=== PATIENT | female | born 1950 ===

== ENCOUNTER 2023-07-16 08:51 | Emergency (ER) | payer BC, MEDICARE ==
[~2023-07-16] VITALS: Ht 160 cm; Wt 77.1 kg
[2023-07-16 09:39] VITALS: BP 134/67; PULSE 80; RESP 18; TEMP 96.8; O2SAT 98
[2023-07-16] MEDS ORDERED: NYSPWD TP (10:40)
== END 2023-07-16 11:35 | disposition home or self-care (01) ==
LOC: ER 08:52
DX: B37.2 Candidiasis of skin and nail (principal)
CPT/HCPCS: 99283

== ENCOUNTER 2025-01-19 11:05 | Inpatient (IN) | payer MEDICARE, OTHER ==
[~2025-01-19] VITALS: Ht 162.6 cm; Wt 73.0 kg
[~2025-01-19 11:05] MED LIST: NYSPWD TP
[2025-01-19 11:49] LABS: MEAN PLATELET VOLUME 9.8 FL (7.4-10.4); RED CELL DISTRIBUTION WIDTH 14.2 % (11.5-14.5)
[2025-01-19 12:08] LABS: CREATININE 1.43 MG/DL (0.40-0.90); PRO BRAIN NATRIURETIC PEPTIDE 125 PG/ML (0-125); TOTAL CARBON DIOXIDE 26.8 MMOL/L (24-32); eCRCL 30 ML/MIN; eGFR 36 ML/MIN
--- NOTE | 2025-01-19 12:16 | ELECTROCARDIOGRAPH REPORT ---
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 Rivka Smith Measurements Intervals [place] Rate: 76 P: 0 [place]: 0 QRS: -90 QRSD: 114 T: 92 QT: 402 QTc: 453 Interpretive Statements Atrial fibrillation Left anterior fascicular block Abnormal R-wave progression, late transition Borderline T abnormalities, anterior leads Electronically Signed On 01-19-2025 12:42:[address] Rivka Smith Please click the below link to view image of tracing.
--- NOTE | 2025-01-19 12:35 | RADIOLOGY REPORT ---
DI CHEST,SINGLE VIEW, HISTORY: CP COMPARISON: None None TECHNICAL DATA: 1 view of the chest was obtained. FINDINGS: Lines and tubes: None Cardiomediastinal silhouette: normal Pulmonary vasculature: normal Lung expansion: normal Lung airspace: normal Lung interstitium: normal Pleura: normal Pneumothorax: no Bones: Unremarkable Other: no IMPRESSION: No acute intrathoracic abnormality.
[2025-01-19 13:25] LABS: LEUKOCYTE ESTERASE ,URINE NEGATIVE (Neg); NITRITES, URINE NEGATIVE (Neg); OCCULT BLOOD,URINE SMALL (Neg)
[2025-01-19 13:33] LABS: UA COLLECTION TYPE STRAIGHT CATH
[2025-01-19 13:34] LABS: MUCUS STRANDS FEW /LPF (Neg); SQUAMOUS EPITHELIAL CELL,UR MANY /LPF (FEW)
[2025-01-19 13:36] LABS: AMORPHOUS PHOSPHATES 2+
[2025-01-19 13:38] LABS: HYALINE CASTS 0-3 /LPF (NEGATIVE)
[2025-01-19] MEDS: normal saline 1000ML IV soln IVB ONE (17:50)
--- NOTE | 2025-01-19 17:50 | RADIOLOGY REPORT ---
CT CT HEAD Indication: aloc EXAM DATE: 01/19/2025 05:31 PM COMPARISON: None TECHNIQUE: CT of the head without intravenous contrast. RADIATION DOSE: CTDIvol: 65 mGy, DLP: 1255 mGy*cm FINDINGS: There is no intracranial hemorrhage. There is no extra-axial fluid, mass, mass effect or midline shif t. The ventricles are midline and normal in size. Basilar cisterns are patent. There is mild global c erebral volume loss. Mild periventricular and subcortical white matter chronic microvascular ischemi c changes. The paranasal sinuses and mastoids are well-pneumatized. Imaged portion of the orbits are unremarkabl e. IMPRESSION: No intracranial hemorrhage or mass effect. Mild global cerebral volume loss. Mild chronic microvascular ischemic changes.
--- NOTE | 2025-01-19 17:55 | Physician Documentation ---
History of Present Illness ~ Chief Complaint: ALOC Stated Complaint: ALOC Time Seen by MD: 17:48 OK to notify your PCP?: Yes Source: patient, RN/MD, RN notes reviewed, old records Mode of Arrival: EMS Exam Limitations: no limitations HPI This patient comes to the ER with a history of profound dementia. Patient has been going downhill for quite some time. About a week ago patient's legs just started giving out she can not walk she is not eating she has not had a bowel movement and entire week. No vomiting just lethargy and not moving at all she seems to be a bit more confused and baseline and altered. Has been tried to make an appointment with the primary care physician and a week later received a call to come to the ER. Patient mumbles but that is also part of her baseline. She does not appear to have any specific pain or fevers but is failing to thrive. Past medical history: Dementia CVA diabetes hypertension Past surgical history noncontributory Social history denies tobacco alcohol recreational drugs Medication Reconciliation Allergies: Coded Allergies: No Known Allergies (Unverified , 01/19/25) Scheduled Nystatin (NYSTOP powder), 1 APPLIC TP BID Review of Systems All Other Systems at this time: Reviewed and Negative ROS Unable to obtain review of systems accept from has been Physical Exam Vital Signs: RN Vital Signs have been reviewed: Yes, Temperature: 98.1, Source: Oral, Heart Rate: 81, Respiratory Rate: 13, BP: 142/88, Pulse Oximetry: 99, Weight: 73.000 Oxygen Flow Rate: 0 Physical Exam General: The patient is well developed, well nourished, nontoxic appearing and is in no acute distress. Severely demented Skin: [place], warm and dry with no rashes. HEENT: Head was normocephalic and atraumatic. Eyes - pupils equal, round, reactive to light and accommodation. Extraocular movements were intact. Conjunctivae were nonicteric. . The mouth and oropharynx were clear with dry mucous membranes. Neck: Supple and nontender. There was no jugular venous distention, lymphadenopathy, thyromegaly or masses. Chest: Clear to auscultation bilaterally without wheezes, rales or rhonchi. No accessory muscle use. No dullness to percussion. Heart: Rate regular and rhythmic. S1, S2. No murmurs. Palpation of the chest wall was normal. No rubs or thrills. Abdomen: Soft, nontender and nondistended. Positive bowel sounds. No guarding or rebound. No hepatosplenomegaly or palpable masses. Extremities: No cyanosis, clubbing The patient moves all extremities. Pulses were equal and symmetric. Trace edema, abrasion right knee Neurologic: Cranial nerves II-XII were intact. Sensation was intact to light touch throughout. Motor strength was 5/5 in all four extremities. Deep tendon reflexes were intact in both upper and lower extremities. Psychologic: The patient was oriented to person, place and time. The patient demonstrated appropriate judgement and insight. Progress Progress Note 6:00 p.m. discussed the case with the hospitalist for admission Results/Orders Reviewed/noted all lab results: Yes Results/Orders Orders - MAHAD KELLY MD Monitor (01/19/25 11:40) Saline Lock (01/19/25 11:40) Oxygen (01/19/25 11:40) BMP (01/19/25 11:40) PBNP (01/19/25 11:40) Electrocardiogram (01/19/25 11:40) Culture Blood (01/19/25 11:40) Chest,Single View (01/19/25 12:04) Straight Cath For Urine Sample (01/19/25 11:40) Cult Urine + [facility] Ct (01/19/25 13:39) Ct Head (01/19/25 17:38) Normal Saline 1000ml (0.9% Sodium Chlori (01/19/25 17:50) CK (01/19/25 11:22) Hgb A1c (01/19/25 11:22) MG (01/19/25 11:22) Completed Orders - MAHAD KELLY MD Cbc/Diff (01/19/25 11:40) Electrocardiogram (01/19/25 11:40) Hs Troponin I W Calculations (01/19/25 11:40) Hs Troponin I W Calculations (01/19/25 13:40) Hs Troponin I W Calculations (01/19/25 14:40) Chest,Single View (01/19/25 12:04) Procalcitonin (01/19/25 11:40) Lacticsepsis (01/19/25 11:40) Ua W/Microscopic, Cult If Ind (01/19/25 13:14) Ct Head (01/19/25 17:38) Normal Saline 1000ml (0.9% Sodium Chlori (01/19/25 17:50) Medications Received in ER Medications (Trade) Dose Ordered Sig/Gloria Route PRN Reason Start Time Stop Time Status Last Admin Dose Admin Sodium Chloride 1,000 ml @ 200 mls/hr Q5H ONCE IV 01/19/25 17:50 01/19/25 22:49 01/19/25 18:08 200 MLS/HR Vital Signs 01/19/25 01/19/25 01/19/25 01/19/25 11:10 11:26 13:30 14:15 Temp 98.1 98.1 98.1 Pulse 80 67 75 Resp 12 11 21 13 B/P (MAP) 154/90 144/73 (96) 157/75 (102) Pulse Ox 97 99 100 O2 Flow Rate 0 0 0 01/19/25 01/19/25 01/19/25 15:02 16:21 18:00 Temp 98.1 98.1 98.1 Pulse 70 81 80 Resp 15 13 11 B/P (MAP) 158/76 (103) 142/88 (106) 160/85 (110) Pulse Ox 100 99 98 O2 Flow Rate 0 0 0 Laboratory Tests Test 01/19/25 11:22 01/19/25 11:59 01/19/25 13:14 01/19/25 14:04 White Blood Count 11.4 H Red Blood Count 4.20 Hemoglobin 12.4 Hematocrit 37.3 Mean Corpuscular Volume 89.0 Mean Corpuscular Hemoglobin 29.4 Mean Corpuscular Hemoglobin Concent 33.1 Red Cell Distribution Width 14.2 Platelet Count 172 Mean Platelet Volume 9.8 Neutrophils (%) (Auto) 82.2 H Lymphocytes (%) (Auto) 10.4 L Monocytes (%) (Auto) 5.5 Eosinophils (%) (Auto) 1.5 Basophils (%) (Auto) 0.4 Neutrophils # (Auto) 9.4 H Lymphocytes # (Auto) 1.2 Monocytes # (Auto) 0.6 Eosinophils # (Auto) 0.2 Basophils # (Auto) 0.0 CBC Comment Sodium Level 144 Potassium Level 4.0 Chloride Level 106 Carbon Dioxide Level 26.8 Anion Gap 11 Blood Urea Nitrogen 39 H Creatinine 1.43 H Estimated GFR/1.73 m2 36 BUN/Creatinine Ratio 27.3 H Glucose Level 142 H Calcium Level 9.5 Magnesium Level 2.4 Total Creatine Kinase 488 H Troponin I High Sensitivity 19 21 Pro-B-Type Natriuretic Peptide 125 Albumin 3.7 Procalcitonin < 0.05 Chemistry Comments Lactic Acid Level 1.4 Urine Specimen Description Straight cath Urine Color Yellow Urine Clarity Slightly cloudy Urine pH 5.5 Urine Specific [place] 1.025 Urine Protein Negative Urine Glucose (UA) Negative Urine Ketones Negative Urine Occult Blood Small Urine Nitrite Negative Urine Bilirubin Negative Urine Urobilinogen 0.2 Urine Leukocyte Esterase Negative Urine RBC 3-10 Urine WBC 5-10 H Urine Squamous Epithelial Cells Many Urine Amorphous Phosphates 2+ Urine Bacteria 3+ Urine Hyaline Casts 0-3 Urine Mucus Few Urine Culture Indicated Indicated Volume Urine Centrifuged 10 ml Urine Comment Troponin I High Sens Percent Delta 10 Troponin I Hi Sens Absolute Change 2 Test 01/19/25 14:56 01/19/25 18:16 Troponin I High Sensitivity 23 Troponin I High Sens Percent Delta 9 Troponin I Hi Sens Absolute Change 2 Coagulation Comments Magnesium Level 2.2 Microbiology Date/Time Source Procedure Growth Status 01/19/25 13:39 Urine Straight Cath Urine Culture - Preliminary Culture received. Resulted 01/19/25 11:59 Blood Arm Left Blood Culture - Preliminary NEGATIVE (LESS THAN 24 HOURS) Resulted Re-Evaluation Re-Evaluation : Re-Evaluation: Improved Progress Patient was seen and examined. Patient is given reassurance. Patient was hydrated doing a bit better. Laboratory work was obtained there is a slight elevated white count of 11.4 no anemia left shift of 82.2. Patient's lactic acid however is 1.4 reassuring procalcitonin negative making infectious etiology unlikely. Magnesium is 2.2 troponins negative but the patient's BUN is elevated at 39 creatinine 1.43 with a elevated BUN creatinine ratio 27.3 consistent with some dehydration. CPK slightly elevated at 488. Urinalysis showed some trace WBCs 5-10 3-10 RBCs. But many squamous epithelial cells most likely a contaminant but the specific gravity is 1.025. I discussed the case with the family who agreed with hospitalization for fine tuning the patient. Patient appears well otherwise and was then admitted to the hospitalist service for further workup and care. Continuous child monitor interpretation shows normal sinus rhythm heart rate 70s, no ectopy, normal, my interpretation. Pulse oximetry monitor interpretation shows normal oxygenation 99% room air, normal, my interpretation. 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 Mahad Kelly Measurements Intervals [place] Rate: 76 P: 0 IN: 0 QRS: -90 QRSD: 114 T: 92 QT: 402 QTc: 453 Interpretive Statements Atrial fibrillation Left anterior fascicular block Abnormal R-wave progression, late transition Borderline T abnormalities, anterior leads Electronically Signed On 01-19-2025 12:42:[address] Mahad Kelly Please click the below link to view image of tracing. EKG Date and Time:01/19/25 1214 Electronically Signed by: MAHAD KELLY MD Date and Time: 01/19/25 1242 Chest X-Ray : Additional Comments DI CHEST,SINGLE VIEW, HISTORY: CP COMPARISON: None None TECHNICAL DATA: 1 view of the chest was obtained. FINDINGS: Lines and tubes: None Cardiomediastinal silhouette: normal Pulmonary vasculature: normal Lung expansion: normal Lung airspace: normal Lung interstitium: normal Pleura: normal Pneumothorax: no Bones: Unremarkable Other: no IMPRESSION: No acute intrathoracic abnormality. Electronically Signed by:PHUC DUGAN MD Date & Time: 01/19/25 1233 Dictated by: PHUC DUGAN MD Dictation date and time: 01/19/25 1233 Primary Care Provider: NO PRIMARY CARE PROVIDER cc: MAHAD KELLY MD ~ CT : CT: head With Contrast?: No Impression CT CT HEAD Indication: aloc EXAM DATE: 01/19/2025 05:31 PM COMPARISON: None TECHNIQUE: CT of the head without intravenous contrast. RADIATION DOSE: CTDIvol: 65 mGy, DLP: 1255 mGy*cm FINDINGS: There is no intracranial hemorrhage. There is no extra-axial fluid, mass, mass effect or midline shift. The ventricles are midline and normal in size. Basilar cisterns are patent. There is mild global cerebral volume loss. Mild periventricular and subcortical white matter chronic microvascular ischemic changes. The paranasal sinuses and mastoids are well-pneumatized. Imaged portion of the orbits are unremarkable. IMPRESSION: No intracranial hemorrhage or mass effect. Mild global cerebral volume loss. Mild chronic microvascular ischemic changes. Electronically Signed by:JUAN ANDRES MD Date & Time: 01/19/25 1750 Medical Decision Making Differential Dx:Considerations: Include: dehydration, Delirium Tr., DKA, encephalopathy, hypercalcemia, HHNC, hypoglycemia, hypernatremia, hyponatremia, hypoxia, postictal, closed head injury, C-spine injury, CVA, mass lesion, subarachnoid hemorrhage, drug overdose, encephalopathy, ETOH intoxication, medication toxicity, infection - meningitis, infection - sepsis, infection - UTI, heart failure, renal failure, respiratory failure, hyperthermia, hypothermia, other Departure Disposition: 09 ADMITTED INPATIENT Admitted to Inpatient Unit: yes, to hospitalist Admission Level of Care: Med/Surg with Tele Impression: Primary Impression: Altered mental status Qualified Codes: R40.0 - Somnolence Additional Impressions: Dehydration Failure to thrive Qualified Codes: R62.7 - Adult failure to thrive Multiple falls Abrasion, right knee, initial encounter Condition: Guarded Referrals: NO PRIMARY CARE PROVIDER (PCP) Education Educated: Patient Educated regarding: diagnosis, prognosis, need for follow up, other Signature Scribe Signature: . Attestation: The note accurately reflects work and decisions made by me.Mahad Kelly MD 01/19/25 18:57 MAHAD KELLY MD Jan 19, 2025 17:55
[2025-01-19] MEDS ORDERED: magnesium sulf-water 4G/100mL 100 ML IV PRN (18:05)
[2025-01-19] MEDS ORDERED: ondansetron/PF 4mg/2ml inj IV PRN (18:05)
[2025-01-19] MEDS ORDERED: magnesium sulf-water 2g/50mL 50 ML IV PRN (18:05)
[2025-01-19] MEDS ORDERED: magnesium Cl slow-release 64mg tablet PO PRN (18:05)
[2025-01-19] MEDS ORDERED: potassium Cl 20 mEq SR tablet PO PRN (18:05)
[2025-01-19] MEDS: normal saline 1000ml 1,000 ML IV ONE (18:08)
[2025-01-19] MEDS: normal saline 1000ml 1,000 ML IV SCH (19:00)
[2025-01-19 19:10] LABS: APTT 24 SECONDS (22-32); INR 1.1 INR
--- NOTE | 2025-01-19 19:19 | HISTORY AND PHYSICAL-Residence ---
History & Physical Providers to CC Resident Creating Document: KEVIN JOHNSON, RES ~ History of Present Illness Reason for Admit\Complaint: Altered Level of Conciousness History of Present Illness 74 years old patient with past medical history of Dementia and Type 2 Diabetes mellitus presents to ED with Altered level of consciousness,patient is a poor historian according to her caregiver patient has gradually progressive dementia fromlast 6-8 months but since last week her condition started deterioratingand from last 2 days it was exacerbated, 3 years ago patient had lost ability to walk for 7 days he also mentioned patient lost her appetite and he is constipated for 7 days with pain abdomen. he denies any heard conditions, head injuries, any renal abnormalities, today ED doctor mentioned she passed a dark urine. Allergies: Coded Allergies: No Known Allergies (Unverified , 01/19/25) Home Medications Home Medications Active NYSTOP powder (Nystatin) 100,000 Unit/Gram Gra 1 Applic TP BID Past Medical History Past Medical History type II Diabetes mellitus High blood pressure Past Surgical History Surgical History Comment No surgical history Past Social History Smoking: Non-Smoker Alcohol Use: None Drug Use: None Lives with: Family Lives In: Home ROS All Other Systems: Reviewed and Negative Unable to obtain: altered mental status Exam Vitals: Vital Signs Date Time Temp Pulse Resp B/P (MAP) Pulse Ox O2 Delivery O2 Flow Rate FiO2 01/19/25 18:00 98.1 80 11 160/85 (110) 98 0 General: General : patient is confused, speech is tangential, and oriented X0 General: Awake and Alert, no acute distress. HEENT: Clear sclera, [place] Conjunctiva, no dryness Neck: Supple without masses and tenderness. Resp: normal breathing, no gasping,normal breath sounds Heart: Normal S1 and S2, regular , rub or gallop. Abdomen: Normal bowel sounds on auscultation Extremities: Patient denies physical examination Skin: Warm and Dry. Diagnostic Data Last Recorded Lab Results: 01/19/25 1122 01/19/25 1816 Diagnostic Data: Laboratory Tests Test 01/19/25 18:16 Coagulation Comments Additional Plan Altered mental status Possible metabolic encephalopathy, Possible UTI WBC: 11.4, UA: WBC-5-10, Procal: <0.05 , troponins 21<23 ProBnp: 125 CT Head :No intracranial hemorrhage or mass effect.Mild global cerebral volume loss.Mild chronic microvascular ischemic changes. Chest xray :No acute intrathoracic abnormality UA: 5-10 wbc plan : Continue monitoring CBC and CMP Ordered Blood cultures Started Ceftriaxone 50ml @100ml/hr IV daily LEX possible dehydration Creatinine 1.43 , BUN 39 , BUN:CR: 27.3 Plan: Started IV NS 150 ml/hr Monitor CMP regularly Type 2 diabetes mellitus Glucose 142 , HbA1c ; 6.5 plan : insulin sliding medium scale DVT ppx: Heparin drip Disposition : patient will be admitted in Ortho with telemetry monitoring Kevin Johnson PGY1 Date of Service: Jan 19, 2025 Billing Provider: SILVA SMITH MD Common Visit Codes: [id number] INP/OBS CARE (HIGH) Secondary Visit Codes: [id number] CARE PLAN 30 MINUTES KEVIN JOHNSON, RES Jan 19, 2025 19:19 SILVA SMITH MD Jan 21, 2025 08:24
[2025-01-19] MEDS: docusate sod 100mg capsule PO SCH (20:00)
[2025-01-19] MEDS ORDERED: DEXTROSE 15 GM of carb/4 tabs (each vial/BOTTLE has 4 tablets) PO PRN ×2 (20:10)
[2025-01-19] MEDS ORDERED: glucagon, human recombinant 1mg kit SUBCUT PRN (20:10)
[2025-01-19] MEDS ORDERED: dextrose 50%-water 50ml dispensing syringe IV PRN ×2 (20:10)
[2025-01-19] MEDS: CefTRIAXone/D5W-Rocephin 1gm 50 ML IV SCH (20:38)
[2025-01-19] MEDS: heparin, porcine 5000 units/ml vial SQ SCH (20:40)
[2025-01-19] MEDS: K and/or MAG REPLACEMENT MC SCH (20:45)
[2025-01-19] MEDS: INSULIN LISPRO 100 UNIT/ML INSULN.PEN MULTI-DOSE SQ SCH (20:58)
[2025-01-19 22:18] VITALS: RESP 18; O2SAT 100
[2025-01-19 22:28] VITALS: BP 147/81; PULSE 82; RESP 18; TEMP 98.7; O2SAT 100
[2025-01-20 05:07] LABS: MEAN PLATELET VOLUME 9.9 FL (7.4-10.4); RED CELL DISTRIBUTION WIDTH 13.9 % (11.5-14.5)
[2025-01-20 05:29] LABS: CHOL/HDL RATIO 2.7 (0.00-4.99); CREATININE 1.00 MG/DL (0.40-0.90); LDL CHOLESTEROL 74 MG/DL (50-100); TOTAL CARBON DIOXIDE 23.3 MMOL/L (24-32); eCRCL 43 ML/MIN; eGFR 54 ML/MIN
[2025-01-20 06:00] VITALS: BP 158/71; PULSE 53; RESP 14; TEMP 97.2; O2SAT 100
[2025-01-20] MEDS: potassium Cl 40MEQ/1/2NS 520ml 520 ML IV PRN (08:30)
[2025-01-20] MEDS ORDERED: LEVO125T8 PO (10:39)
[2025-01-20] MEDS ORDERED: METF-1203 PO (10:39)
[2025-01-20] MEDS ORDERED: ATOR20TA PO (10:39)
[2025-01-20 11:00] VITALS: BP 177/83; PULSE 78; RESP 12; TEMP 97.7; O2SAT 99
[2025-01-20] MEDS: hydrALAZINE 20mg/ml inj. IV PRN (11:59)
[2025-01-20] MEDS ORDERED: iohexol 300mg/ml 100ml inj. ONE (14:23)
[2025-01-20 14:58] VITALS: BP 156/70; PULSE 78
[2025-01-20] MEDS: diatr meglu/diatrizoate 30ml oral sol.-(3 dose) bottle PO SCH (17:23)
--- NOTE | 2025-01-20 17:47 | PROGRESS NOTE- Residence ---
Progress Note - Resident Providers to CC Resident Creating Document: MIQUEL JOHNSON RES ~ Antibiotic Timeout Antibiotic Ordered?: Yes Subjective patient is examined at bedside, patient is drowsy but did responded when i call her name Objective Vital Signs Date Time Temp Pulse Resp B/P (MAP) Pulse Ox O2 Delivery O2 Flow Rate FiO2 01/20/25 14:58 78 156/70 (98) 01/20/25 11:00 97.7 12 99 Room Air 01/19/25 20:52 0 Result Diagram: 01/20/2544401/20/25444 General: drowsy, confused HEENT: Conjunctiva pink, Sclera clear, Mucus Membranes moist. Neck: Supple without masses , No thyromegalay , no tenderness. Resp: Unlabored. Lungs clear to auscultation bilaterally. Heart: Regular Rate and rhythm, normal S1 and S2 without murmur, rub or gallop. Abdomen: Soft and non tender no organomegaly Extremities: No cyanosis,clubbing or edema. Skin: Warm and Dry. Coagulation Studies Laboratory Tests Test 01/19/25 18:16 Prothrombin Time 11.6 SECONDS (9.0-12.0) INR International Normalized Ratio 1.1 INR Activated Partial Thromboplast Time 24 SECONDS (22-32) Coagulation Comments Assessment Assessment 74 years old with history of dementia is currenly evaluated for ALOC, Type 2 DM, LEX Plan Plan Altered mental status Possible metabolic encephalopathy, Possible UTI WBC: 11.4, UA: WBC-5-10, Procal: <0.05 , troponins 21<23 ProBnp: 125 CT Head :No intracranial hemorrhage or mass effect.Mild global cerebral volume loss.Mild chronic microvascular ischemic changes. Chest xray :No acute intrathoracic abnormality UA: 5-10 wbc plan : Continue monitoring CBC and CMP Ordered Blood cultures Started Ceftriaxone 50ml @100ml/hr IV daily 01/20/2025: Wbc:9.4 trending down, Hb;11.8, K;2.9, Creatinine 1, BUN 24 prelimnary blood culture shows no growth Plan : Continue monitor CBC and CMP Continue Ceftriaxone 50ml @100ml/hr IV ( day 2) Chronic constipation possible intestine obstruction, Hypothyroidism TSH 86.57, Plan: CT Abodmen with iv/oral contrast Hypothyroidism TSH 86.57, Plan: follow up with free T4 Continue Levothyroxine 125 mcg LEX possible dehydration Creatinine 1 , BUN 24 , trending down Plan: continue IV NS 150 ml/hr Monitor CMP regularly Type 2 diabetes mellitus Glucose 142 , HbA1c ; 6.5 plan : insulin sliding medium scale Code Status: full DVT prophylaxis: Heparin Drip. Line/tube: Peripheral GI prophylaxis: Protonix PT: Yes Prognosis: Guarded Dispositon: Patient will be monitored in ortho miquel johnson PGY1 Date of Service: Jan 20, 2025 Billing Provider: SILVA SMITH MD Common Visit Codes: [id number] INP/OBS CARE(HIGH) MIQUEL JOHNSON, RES Jan 20, 2025 17:47 SILVA SMITH MD Jan 22, 2025 07:54
[2025-01-20 18:00] VITALS: BP 147/68; PULSE 56; RESP 16; TEMP 97.7; O2SAT 99
[2025-01-20] MEDS: potassium Cl 20 mEq SR tablet PO STA (21:42)
[2025-01-20 22:00] VITALS: BP 174/88; PULSE 75; RESP 16; TEMP 97.4; O2SAT 99
--- NOTE | 2025-01-21 01:01 | RADIOLOGY REPORT ---
Exam: CT CT ABDOMEN PELVIS W/ IV ORAL CONTRAST History: abdominal pain Comparison Study: None TECHNIQUE: A digital filer and sander image was obtained. During the uneventful, intravenous administration of c ontrast material, multislice data acquisition was obtained through the abdomen and pelvis. The data s et was subsequently reconstructed into multiplanar reformats. RADIATION DOSE: CTDI vol 32.59 mGy. DLP 1648.15 mGy.cm Findings: Liver: Unremarkable. Spleen: Unremarkable. Pancreas: Unremarkable. Gallbladder: Unremarkable. Adrenals: Unremarkable Kidneys: Too small to characterize right renal lesion. No hydronephrosis. Contrast opacifies portio ns of the ureters, limiting assessment for possible renal calculi. Pelvic Viscera: Prior hysterectomy. Mild distention of the urinary bladder. Vasculature: Moderate aortoiliac atherosclerosis. Retroperitoneum: Mild nonspecific mesenteric stranding.. Bowel: No bowel obstruction. The appendix is normal. Musculoskeletal: Unremarkable. Soft tissues: Unremarkable Lungs: Minimal basilar atelectasis/scarring. Impression: 1. No acute abdominopelvic abnormality. 2. Incidental findings as detailed.
[2025-01-21] MEDS: LidoCAINE 2% Topical Jelly 11mL syringe (UROJET) TOP ONE (01:14)
[2025-01-21 05:35] LABS: MEAN PLATELET VOLUME 10.3 FL (7.4-10.4); RED CELL DISTRIBUTION WIDTH 14.1 % (11.5-14.5)
[2025-01-21 06:00] VITALS: BP 155/83; PULSE 73; RESP 15; TEMP 96.5; O2SAT 98
[2025-01-21 06:11] LABS: CREATININE 0.86 MG/DL (0.40-0.90); TOTAL CARBON DIOXIDE 19.7 MMOL/L (24-32); eCRCL 50 ML/MIN; eGFR 65 ML/MIN
[2025-01-21 10:00] VITALS: BP 115/59; PULSE 58; RESP 17; TEMP 97; O2SAT 99
[2025-01-21] MEDS ORDERED: ACET160S PO (17:14)
--- NOTE | 2025-01-21 17:14 | PROGRESS NOTE- Residence ---
Progress Note - Resident Providers to CC Resident Creating Document: RENEE JOHNSON RES ~ Antibiotic Timeout Antibiotic Ordered?: Yes Subjective patient is examined at bedside, patient is drowsy Objective Vital Signs Date Time Temp Pulse Resp B/P (MAP) Pulse Ox O2 Delivery O2 Flow Rate FiO2 01/21/25 10:00 97.0 58 17 115/59 (77) 99 Room Air 01/19/25 20:52 0 Result Diagram: 01/21/2544801/21/25448 General: drowsy, confused HEENT: Conjunctiva pink, Sclera clear, Mucus Membranes moist. Neck: Supple without masses , No thyromegalay , no tenderness. Resp: Unlabored. Lungs clear to auscultation bilaterally. Heart: Regular Rate and rhythm, normal S1 and S2 without murmur, rub or gallop. Abdomen: Soft and non tender no organomegaly Extremities: No cyanosis,clubbing or edema. Skin: Warm and Dry. Coagulation Studies Laboratory Tests Test 01/19/25 18:16 Prothrombin Time 11.6 SECONDS (9.0-12.0) INR International Normalized Ratio 1.1 INR Activated Partial Thromboplast Time 24 SECONDS (22-32) Coagulation Comments Assessment Assessment 74 years old with history of dementia is currenly evaluated for ALOC, Type 2 DM, LEX Plan Plan Altered mental status Possible metabolic encephalopathy, Possible UTI WBC: 11.4, UA: WBC-5-10, Procal: <0.05 , troponins 21<23 ProBnp: 125 CT Head :No intracranial hemorrhage or mass effect.Mild global cerebral volume loss.Mild chronic microvascular ischemic changes. Chest xray :No acute intrathoracic abnormality UA: 5-10 wbc plan : Continue monitoring CBC and CMP Ordered Blood cultures Started Ceftriaxone 50ml @100ml/hr IV daily 01/20/2025: Wbc:9.4 trending down, Hb;11.8, K;2.9, Creatinine 1, BUN 24 prelimnary blood culture shows no growth Plan : Continue monitor CBC and CMP Continue Ceftriaxone 50ml @100ml/hr IV ( day 2) 01/21/25: WBC: 8.9 trending down, Hb:10g, ESR;23 Blood cluture shows no growth UA: 5-10 wbc plan: Continue Monitor CBC and CMP continue Ceftriaxone 50ml @100ml/hr IV ( day 3) Chronic constipation possible intestine obstruction, Hypothyroidism TSH 86.57, CT Abodmen with iv/oral contrast - . No acute abdominopelvic abnormality. Hypothyroidism TSH 86.57, Plan: follow up with free T4 Continue Levothyroxine 125 mcg LEX possible dehydration Creatinine 1 , BUN 24 , trending down Plan: continue IV NS 150 ml/hr Monitor CMP regularly Type 2 diabetes mellitus Glucose 142 , HbA1c ; 6.5 plan : insulin sliding medium scale Code Status: full DVT prophylaxis: Heparin Drip. Line/tube: Peripheral GI prophylaxis: Protonix PT: Yes Prognosis: Guarded Dispositon: Patient will be monitored in ortho renee johnson PGY1 Date of Service: Jan 21, 2025 Billing Provider: SILVA SMITH MD Common Visit Codes: [id number] INP/OBS CARE(HIGH) RENEE JOHNSON, LIANG Jan 21, 2025 17:14 SILVA SMITH MD Jan 22, 2025 07:55
[2025-01-21 18:00] VITALS: BP 152/81; PULSE 79; RESP 16; TEMP 98; O2SAT 97
[2025-01-21 20:00] VITALS: RESP 14; O2SAT 96
[2025-01-21 22:00] VITALS: BP 111/63; PULSE 76; RESP 14; TEMP 98.2; O2SAT 96
[2025-01-22 06:00] VITALS: BP 130/66; PULSE 66; RESP 18; TEMP 97; O2SAT 97
[2025-01-22 06:07] LABS: MEAN PLATELET VOLUME 10.4 FL (7.4-10.4); RED CELL DISTRIBUTION WIDTH 14.3 % (11.5-14.5)
[2025-01-22 06:26] LABS: CREATININE 1.08 MG/DL (0.40-0.90); TOTAL CARBON DIOXIDE 21.3 MMOL/L (24-32); eCRCL 39 ML/MIN; eGFR 50 ML/MIN
[2025-01-22 10:00] VITALS: BP 156/95; PULSE 84; RESP 19; TEMP 98; O2SAT 96
[2025-01-22] MEDS: potassium Cl 20 mEq SR tablet PO PRN (10:33)
[2025-01-22] MEDS: magnesium hydroxide 30ml (MOM) UD suspension PO PRN (10:36)
[2025-01-22] MEDS ORDERED: NYST15PO13 TOP (11:12)
[2025-01-22] MEDS ORDERED: bisacodyl 10mg suppository rectal RC PRN (12:50)
[2025-01-22] MEDS: bisacodyl 10mg suppository rectal RC STA (15:01)
[2025-01-22 18:30] VITALS: BP 126/41; PULSE 78; RESP 18; TEMP 97.6; O2SAT 97
[2025-01-22] MEDS ORDERED: potassium Cl 20 mEq SR tablet PO PRN ×2 (20:10)
--- NOTE | 2025-01-22 21:40 | PROGRESS NOTE- Residence ---
Progress Note - Resident Providers to CC Resident Creating Document: MIQUEL JOHNSON RES ~ Antibiotic Timeout Antibiotic Ordered?: Yes Subjective patient is examined at bedside she is awake and responding Objective Vital Signs Date Time Temp Pulse Resp B/P (MAP) Pulse Ox O2 Delivery O2 Flow Rate FiO2 01/22/25 18:30 97.6 78 18 126/41 (69) 97 Room Air 01/22/25 09:00 0.0 Result Diagram: 01/22/2552401/22/25 0525 General: drowsy, confused HEENT: Conjunctiva pink, Sclera clear, Mucus Membranes moist. Neck: Supple without masses , No thyromegalay , no tenderness. Resp: Unlabored. Lungs clear to auscultation bilaterally. Heart: Regular Rate and rhythm, normal S1 and S2 without murmur, rub or gallop. Abdomen: Soft and non tender no organomegaly Extremities: No cyanosis,clubbing or edema. Skin: Warm and Dry. Coagulation Studies Laboratory Tests Test 01/19/25 18:16 Prothrombin Time 11.6 SECONDS (9.0-12.0) INR International Normalized Ratio 1.1 INR Activated Partial Thromboplast Time 24 SECONDS (22-32) Coagulation Comments Assessment Assessment 74 years old with history of dementia is currenly evaluated for ALOC, Type 2 DM, LEX Plan Plan Altered mental status Possible metabolic encephalopathy, Possible UTI R/o Stroke CT: Shows No intracranial hemorrhage or mass effect,Mild global cerebral volume loss,Mild chronic microvascular ischemic changes Possible UTI WBC: 11.4, UA: WBC-5-10, Procal: <0.05 , troponins 21<23 ProBnp: 125 Chest xray :No acute intrathoracic abnormality UA: 5-10 wbc plan : Continue monitoring CBC and CMP Ordered Blood cultures Started Ceftriaxone 50ml @100ml/hr IV daily 01/20/2025: Wbc:9.4 trending down, Hb;11.8, K;2.9, Creatinine 1, BUN 24 prelimnary blood culture shows no growth Plan : Continue monitor CBC and CMP Continue Ceftriaxone 50ml @100ml/hr IV ( day 2) 01/21/25: WBC: 8.9 trending down, Hb:10g, ESR;23 Blood cluture shows no growth UA: 5-10 wbc plan: Continue Monitor CBC and CMP continue Ceftriaxone 50ml @100ml/hr IV ( day 3) 01/22/25: Continue monitor CBC/CMP continue Ceftriaxone 50ml @100ml/hr IV ( day 4) Chronic constipation possible intestine obstruction, Hypothyroidism TSH 86.57, CT Abodmen with iv/oral contrast - . No acute abdominopelvic abnormality. Started Basicodyl suppository Hypothyroidism TSH 86.57, Plan: follow up with free T4 Continue Levothyroxine 125 mcg LEX possible dehydration Creatinine 1.08 , BUN 8 , BUN:Cr- 7.4 , GFR -50 Plan: Monitor CMP regularly Type 2 diabetes mellitus Glucose 142 , HbA1c ; 6.5 plan : insulin sliding medium scale Dispositon: Patient will be monitored in ortho miquel johnson PGY1 Date of Service: Jan 22, 2025 Billing Provider: SILVA SMITH MD Common Visit Codes: [id number] INP/OBS CARE(HIGH) MIQUEL JOHNSON, RES Jan 22, 2025 21:40 SILVA SMITH MD Jan 24, 2025 08:11
[2025-01-22 22:00] VITALS: BP 160/59; PULSE 79; RESP 16; TEMP 97.4; O2SAT 91
[2025-01-23 06:00] VITALS: BP 167/94; PULSE 75; RESP 18; TEMP 97.1; O2SAT 99
[2025-01-23 06:20] LABS: MEAN PLATELET VOLUME 9.8 FL (7.4-10.4); RED CELL DISTRIBUTION WIDTH 14.0 % (11.5-14.5)
[2025-01-23 06:49] LABS: CREATININE 1.13 MG/DL (0.40-0.90); TOTAL CARBON DIOXIDE 22.3 MMOL/L (24-32); eCRCL 38 ML/MIN; eGFR 47 ML/MIN
[2025-01-23 10:00] VITALS: BP 146/81; PULSE 81; RESP 18; TEMP 97.6; O2SAT 98
[2025-01-23] MEDS: potassium CL 20mEq in D5-1/2NS 1,000 ML IV SCH (10:45)
--- NOTE | 2025-01-23 21:14 | DISCHARGE SUMMARY-Residence ---
Discharge Summary Providers to CC Resident Creating Document: RENEE JOHNSON, RES ~ Discharge Summary Admission Diagnosis: ALTERED LEVEL OF CONCIOUSNESS Hospital Course DATE OF ADMISSION: 01/19/25 DATE OF DISCHARGE: 01/22/25 Discharge Diagnosis\Comment: metabolic encephalopathy Chronic constipation LEX possible dehydration Operations\Procedures: none Consultants: none Complications: none Condition on DC: Stable for transfer Discharge Summary: h/p; 74 years old patient with past medical history of Dementia and Type 2 Diabetes mellitus presents to ED with Altered level of consciousness,patient is a poor historian according to her caregiver patient has gradually progressive dementia fromlast 6-8 months but since last week her condition started deterioratingand from last 2 days it was exacerbated, 3 years ago patient had lost ability to walk for 7 days he also mentioned patient lost her appetite and he is constipat ed for 7 days with pain abdomen. he denies any heard conditions, head injuries, any renal abnormalities, today ED doctor mentioned she passed a dark urine. hospital course : Patient admitted with ALOC and chronic constipation to ED and she also presented with LEX at the time of presentation. them she was put on IV NS 150ml/hr and kidney started Imrpoveing and for metabolic encephalopathy due to Possible UTI we put her on ceftriaxone for 4 days and her consiptaion got relieved with basicodyl suppository. and her condition ago better and vitals are stabe and patient is ready for discharge. Vital Signs Date Time Temp Pulse Resp B/P (MAP) Pulse Ox O2 Delivery O2 Flow Rate FiO2 01/23/25 10:00 97.6 81 18 146/81 (102) 98 Room Air 01/23/25 08:15 0.0 Laboratory Tests Test 01/21/25 21:28 01/22/25 05:25 01/22/25 07:38 01/22/25 12:43 Glucometer 148 mg/dl 100 mg/dl 121 mg/dl White Blood Count 8.3 X10'3 Red Blood Count 4.05 X10'6 Hemoglobin 12.0 g/dl Hematocrit 35.7 % Mean Corpuscular Volume 88.1 FL Mean Corpuscular Hemoglobin 29.5 PG Mean Corpuscular Hemoglobin Concent 33.5 g/dL Red Cell Distribution Width 14.3 % Platelet Count 140 X10'3 Mean Platelet Volume 10.4 FL Neutrophils (%) (Auto) 69.3 % Lymphocytes (%) (Auto) 18.3 % Monocytes (%) (Auto) 7.1 % Eosinophils (%) (Auto) 4.6 % Basophils (%) (Auto) 0.7 % Neutrophils # (Auto) 5.8 X10'3 Lymphocytes # (Auto) 1.5 X10'3 Monocytes # (Auto) 0.6 X10'3 Eosinophils # (Auto) 0.4 X10'3 Basophils # (Auto) 0.1 X10'3 CBC Comment Sodium Level 143 MMOL/L Potassium Level 3.3 MMOL/L Chloride Level 109 MMOL/L Carbon Dioxide Level 21.3 MMOL/L Anion Gap 13 Blood Urea Nitrogen 8 MG/DL Creatinine 1.08 MG/DL Estimated GFR/1.73 m2 50 ML/MIN BUN/Creatinine Ratio 7.4 Glucose Level 103 MG/DL Calcium Level 8.5 MG/DL Magnesium Level 1.8 MG/DL Total Bilirubin 0.9 MG/DL Aspartate Amino Transf (AST/SGOT) 51 U/L Alanine Aminotransferase (ALT/SGPT) 40 U/L Alkaline Phosphatase 76 IU/L Total Protein 6.4 G/DL Albumin 2.9 G/DL Globulin 3.5 G/DL Albumin/Globulin Ratio 0.8 Chemistry Comments Test 01/22/25 17:35 01/22/25 22:05 01/22/25 22:26 01/23/25 05:46 Glucometer 114 mg/dl 102 mg/dl Ammonia < 10 UMOL/L White Blood Count 7.7 X10'3 Red Blood Count 4.30 X10'6 Hemoglobin 12.8 g/dl Hematocrit 37.3 % Mean Corpuscular Volume 86.8 FL Mean Corpuscular Hemoglobin 29.7 PG Mean Corpuscular Hemoglobin Concent 34.2 g/dL Red Cell Distribution Width 14.0 % Platelet Count 155 X10'3 Mean Platelet Volume 9.8 FL Neutrophils (%) (Auto) 71.6 % Lymphocytes (%) (Auto) 17.1 % Monocytes (%) (Auto) 6.2 % Eosinophils (%) (Auto) 4.3 % Basophils (%) (Auto) 0.8 % Neutrophils # (Auto) 5.5 X10'3 Lymphocytes # (Auto) 1.3 X10'3 Monocytes # (Auto) 0.5 X10'3 Eosinophils # (Auto) 0.3 X10'3 Basophils # (Auto) 0.1 X10'3 CBC Comment Sodium Level 141 MMOL/L Potassium Level 3.7 MMOL/L Chloride Level 108 MMOL/L Carbon Dioxide Level 22.3 MMOL/L Anion Gap 11 Blood Urea Nitrogen 6 MG/DL Creatinine 1.13 MG/DL Estimated GFR/1.73 m2 47 ML/MIN BUN/Creatinine Ratio 5.3 Glucose Level 97 MG/DL Calcium Level 8.5 MG/DL Magnesium Level 2.1 MG/DL Total Bilirubin 0.8 MG/DL Aspartate Amino Transf (AST/SGOT) 51 U/L Alanine Aminotransferase (ALT/SGPT) 43 U/L Alkaline Phosphatase 82 IU/L Total Protein 6.7 G/DL Albumin 3.0 G/DL Globulin 3.7 G/DL Albumin/Globulin Ratio 0.8 Chemistry Comments Test 01/23/25 07:26 01/23/25 12:53 Glucometer 91 mg/dl 105 mg/dl Imaging : chest x ray ; No acute intrathoracic abnormality CT head : No intracranial hemorrhage or mass effect.Mild global cerebral volume loss.Mild chronic microvascular ischemic changes. Abodmen/pelvis CT : No acute abdominopelvic abnormality.. Incidental findings as detailed. Physical exam : General: altert , awake , and responding HEENT: Conjunctiva pink, Sclera clear, Mucus Membranes moist. Neck: Supple without masses , No thyromegalay , no tenderness. Resp: Unlabored. Lungs clear to auscultation bilaterally. Heart: Regular Rate and rhythm, normal S1 and S2 without murmur, rub or gallop. Abdomen: Soft and non tender no organomegaly Extremities: No cyanosis,clubbing or edema. Skin: Warm and Dry. discharge instructions : patient should start Amlodpin 10mg BD and ceftriaxone for 3 more days and discharged to [facility] for rehab *Problems/Diagnosis: (1) Altered mental status Status: Chronic (2) Dehydration Status: Acute (3) Hypothyroidism Status: Chronic Total Time Spent on D/C: > 30 Minutes Addendum advanced dementia dehydration Date of Service: Jan 23, 2025 Billing Provider: SILVA SMITH MD Common Visit Codes: 18812-EUR/OBS DISCH DAY >30min Problem Qualifiers (1) Altered mental status: Altered mental status type: disorientation Qualified Codes: R41.0 - Disorientation, unspecified ALARENEE STRAUSS, RES Jan 23, 2025 21:11 SILVA SMITH MD Jan 24, 2025 08:12
== END 2025-01-23 15:00 | DRG 682 ==
LOC: ER 11:05 → ED HOLD 18:14 → EDBEDREQ 20:36 → ORTHO 4S 21:15
PROVIDERS: ADMIT Internal Medicine; ATTEND Internal Medicine
PROC: BW211ZZ Computerized Tomography (CT Scan) of Abdomen and Pelvis using Low Osmolar Contrast (ICD-10-PCS; principal; 2025-01-20)
DX: N17.9 Acute kidney failure, unspecified (principal); G93.41 Metabolic encephalopathy; N39.0 Urinary tract infection, site not specified; E86.0 Dehydration; R62.7 Adult failure to thrive; E11.9 Type 2 diabetes mellitus without complications; S80.211A Abrasion, right knee, initial encounter; K59.09 Other constipation; F03.90 Unspecified dementia, unspecified severity, without behavioral disturbance, psychotic disturbance, mood disturbance, and anxiety; I50.9 Heart failure, unspecified; I11.0 Hypertensive heart disease with heart failure; W18.39XA Other fall on same level, initial encounter; Y93.89 Activity, other specified; Y92.89 Other specified places as the place of occurrence of the external cause; Y99.8 Other external cause status; Z68.27 Body mass index [BMI] 27.0-27.9, adult; Z86.73 Personal history of transient ischemic attack (TIA), and cerebral infarction without residual deficits
CPT/HCPCS: 36415; 70450; 71045; 74177; 80048; 80053; 80061; 81001; 82140; 82550; 82948; 83036; 83605; 83735; 83880; 84132; 84133; 84145; 84439; 84443; 84484; 85025; 85610; 85651; 85730; 86140; 87040; 87081; 87088; 92508; 92616; 93005; 97116; 97162; 97530; 99285; A4314; A4338; A5200; A6213; C1758; G0378; J0360; J0696; J1644; J1815; J3480; J7030; Q9963; Q9967